=== PATIENT | female | born 1945 | race Caucasian/White ===

== ENCOUNTER 2020-07-05 11:29 | Outpatient (CLI) | payer MEDICARE, SELFPAY | END 2020-07-05 11:30 | disposition home or self-care (01) | LOC: ANHCOVIDVC 11:29 | PROVIDERS: PCP Family Medicine | DX: Z23 Encounter for immunization (principal) | CPT/HCPCS: 0001A; 91300 ==

== ENCOUNTER 2020-07-26 11:32 | Outpatient (CLI) | payer MEDICARE, SELFPAY | END 2020-07-26 11:33 | disposition home or self-care (01) | LOC: ANHCOVIDVC 11:32 | PROVIDERS: PCP Family Medicine | DX: Z23 Encounter for immunization (principal) | CPT/HCPCS: 0002A; 91300 ==

== ENCOUNTER 2021-03-03 13:34 | Outpatient (RCR) | payer MEDICARE, SELFPAY ==
[2021-03-03 14:12] VITALS: BP 145/75; PULSE 75; RESP 20; TEMP 36.7; O2SAT 100
[2021-03-03] MEDS: FAMOTIDINE 20 MG TABLET PO (14:16)
[2021-03-03] MEDS: ACETAMINOPHEN 325 MG TABLET 650 MG PO (14:16)
[2021-03-03] MEDS: diphenhydrAMINE HCl CAP 25 MG CAPSULE PO (14:16)
--- NOTE | 2021-03-03 15:02 | PC.NURSE ---
Patient received both [employer] vaccines in June 2020.
[2021-03-03 16:16] VITALS: BP 150/67; PULSE 65; RESP 20; TEMP 36.5; O2SAT 100
--- NOTE | 2021-03-04 13:32 | PC.NURSE ---
Attempted to call patient to follow-up regarding COVID antibody infusion yesterday. Patient was unavailable and a voicemail was left with a call back number for infusion center.
== END 2021-03-03 15:44 | disposition home or self-care (01) ==
LOC: AMCINF 13:34
PROVIDERS: PCP Physician Assistant; Referring Provider Physician Assistant; Visit Provider Internal Medicine Hematology & Oncology
DX: Z23 Encounter for immunization (principal); U07.1 COVID-19; I10 Essential (primary) hypertension; N18.9 Chronic kidney disease, unspecified
CPT/HCPCS: A9270; M0243; Q0243

== ENCOUNTER 2023-05-23 07:33 | Outpatient (CLI) | payer MEDICARE, SELFPAY ==
[2023-05-23 08:16] LABS: Alanine Aminotransferase 17 U/L (6-35); Albumin Level 4.2 g/dL (3.5-5.1); Alkaline Phosphatase 94 U/L (38-126); Anion Gap 6 mmol/L (8-16); Aspartate Amino Transferase 18 U/L (14-36); Bilirubin,Total 0.4 mg/dL (0.2-1.3); Blood Urea Nitrogen 19 mg/dL (7-17); Calcium 9.5 mg/dL (8.4-10.2); Carbon Dioxide 28 mmol/L (22-30); Chloride 103 mmol/L (98-107); Estimated Glomerular Filt Rate 44; Glucose 103 mg/dL (65-110); Potassium 4.2 mmol/L (3.4-5.0); Sodium 137 mmol/L (137-145)
[2023-05-23 08:32] LABS: Free T4 Free Thyroxine 1.04 ng/mL (0.78-2.19)
== END 2023-05-23 07:34 | disposition home or self-care (01) ==
LOC: ANHLAB 07:34
PROVIDERS: PCP Family Medicine; Visit Provider Physician Assistant
DX: R79.89 Other specified abnormal findings of blood chemistry (principal); I10 Essential (primary) hypertension
CPT/HCPCS: 36415; 80053; 84439; 84443